=== PATIENT | male | born 1975 | race Caucasian/White ===

== ENCOUNTER 2016-12-02 22:12 | Emergency (ER) | payer OTHER ==
[~2016-12-02] VITALS: Ht 172.7 cm; Wt 86.2 kg
--- NOTE | 2016-12-02 22:45 | NUR ---
Pt ambulated to room, changed into gown and placed on monitor. Pt NSR. Pt c/o upper left chest pain close to the left shoulder since yesterday, worse today. Pt also c/o numbness /"burning" sensation to his hands and feet with a feeling of weakness to his hands. EKG obtained. Pt resting in position of comfort for self with family at bedside, awaiting further eval.
--- NOTE | 2016-12-02 22:57 | NUR ---
Dr. Del Valle at bedside for MSE
--- NOTE | 2016-12-02 23:10 | NUR ---
Pt medicated for anxiety, will monitor for effects of medication.
--- NOTE | 2016-12-02 23:58 | NUR ---
Pt sts he feels better and only has a little bit of weak feeling to his hands. Pt stable for discharge per Dr. Del Valle. Pt given ACI. Pt verbalized understanding of dc instructions. Pt ambulated out of ER with steady gait and ride home.
[2016-12-03 01:07] VITALS: BP 113/66
== END 2016-12-03 00:01 | disposition home or self-care (01) ==
LOC: ER 22:15
DX: R06.4 Hyperventilation (principal); Z88.0 Allergy status to penicillin; G43.909 Migraine, unspecified, not intractable, without status migrainosus; F17.200 Nicotine dependence, unspecified, uncomplicated
CPT/HCPCS: 93005; A4663

== ENCOUNTER 2017-04-02 12:46 | Emergency (ER) | payer OTHER ==
[~2017-04-02] VITALS: Ht 172.7 cm; Wt 81.6 kg
--- NOTE | 2017-04-02 13:23 | NUR ---
Patient discharged to home in stable conditon. Written and verbal after care instructions given. Patient verbalizes understanding of instructions.PT WALKS IN STEADY GAIT.
== END 2017-04-02 13:26 | disposition home or self-care (01) ==
LOC: ER 12:46
DX: L02.211 Cutaneous abscess of abdominal wall (principal); F17.200 Nicotine dependence, unspecified, uncomplicated; G43.909 Migraine, unspecified, not intractable, without status migrainosus; L08.9 Local infection of the skin and subcutaneous tissue, unspecified; B95.8 Unspecified staphylococcus as the cause of diseases classified elsewhere; Z88.0 Allergy status to penicillin; Z88.5 Allergy status to narcotic agent
CPT/HCPCS: A4663

== ENCOUNTER 2017-07-03 21:09 | Emergency (ER) | payer OTHER ==
[~2017-07-03] VITALS: Ht 170.2 cm; Wt 81.6 kg
--- NOTE | 2017-07-03 21:35 | NUR ---
PT IN BED. PT A&OX4. BREATH SOUNDS EVEN AND UNLABORED. NO SIGNS/SYMPTOMS OF DISTRESS WITNESS BY NURSE OR EXPRESSED BY PT. PT PRESENTED TO ED WITH C/O PAIN, SWELLING, AND REDNESS IN RT ELBOW X 1 DAY. PT REPORTS HISTORY OF IV DRUG USE.
--- NOTE | 2017-07-03 21:58 | NUR ---
PT IN BED. MD ROSE AT BEDSIDE CONDUCTING MED EVAL.
--- NOTE | 2017-07-03 22:09 | NUR ---
Patient discharged to home in stable conditon. Written and verbal after care instructions given. Patient verbalizes understanding of instructions. Patient able to ambulate unassisted with steady gait. Patient left with all personal belongings.
[2017-07-03 22:13] VITALS: BP 137/93
== END 2017-07-03 22:10 | disposition home or self-care (01) ==
LOC: ER 21:14
DX: B95.8 Unspecified staphylococcus as the cause of diseases classified elsewhere (principal); F17.210 Nicotine dependence, cigarettes, uncomplicated; Z88.0 Allergy status to penicillin; Z88.5 Allergy status to narcotic agent
CPT/HCPCS: A4663

== ENCOUNTER 2020-09-07 10:19 | Emergency (ER) | payer OTHER ==
[~2020-09-07] VITALS: Ht 172.7 cm; Wt 86.2 kg
--- NOTE | 2020-09-07 10:26 | NUR ---
Dr Del Valle at the bedside for MSE.
[2020-09-07 10:28] VITALS: BP 127/73
--- NOTE | 2020-09-07 10:40 | NUR ---
Patient discharged to home in stable condition. Written and verbal after care instructions given. Patient verbalizes understanding of instructions. Stressed follow up or return to ER for worsening s/s.
== END 2020-09-07 10:40 | disposition home or self-care (01) ==
LOC: ER 10:19
DX: L08.89 Other specified local infections of the skin and subcutaneous tissue (principal); B95.62 Methicillin resistant Staphylococcus aureus infection as the cause of diseases classified elsewhere; B37.2 Candidiasis of skin and nail; Z80.3 Family history of malignant neoplasm of breast; Z80.42 Family history of malignant neoplasm of prostate; Z80.51 Family history of malignant neoplasm of kidney; Z88.5 Allergy status to narcotic agent; Z88.0 Allergy status to penicillin; F17.200 Nicotine dependence, unspecified, uncomplicated
CPT/HCPCS: A4663

== ENCOUNTER 2020-10-11 01:50 | Emergency (ER) | payer OTHER ==
[~2020-10-11] VITALS: Ht 172.7 cm; Wt 90.7 kg
--- NOTE | 2020-10-11 02:22 | NUR ---
Pt here for L finger swelling and pain starting 2 days [employer].
[2020-10-11] MEDS ORDERED: SULF1TAB48 PO ×2 (02:51→03:16)
[2020-10-11] MEDS ORDERED: NEOMY/BACITRA/POLYMYXIN B OINT UD PACKET TP ONE ×2 (02:58→03:00)
[2020-10-11] MEDS ORDERED: SULFAMETH/TRIMETH 800/160 MG TABLET PO ONE (03:15)
[2020-10-11] MEDS ORDERED: SULFAMETH/TRIMETH 800/160 MG TABLET ONE (03:21)
--- NOTE | 2020-10-11 03:25 | NUR ---
Patient discharged to home in stable condition. Written and verbal after care instructions given. Patient verbalizes understanding of instructions. Stressed follow up or return to ER for worsening s/s. All belongings taken.
[2020-10-11 03:26] VITALS: BP 139/95
== END 2020-10-11 03:26 | disposition home or self-care (01) ==
LOC: ER 01:53
DX: L03.012 Cellulitis of left finger (principal); Z88.5 Allergy status to narcotic agent; Z88.0 Allergy status to penicillin; Z80.3 Family history of malignant neoplasm of breast; Z80.51 Family history of malignant neoplasm of kidney; Z80.42 Family history of malignant neoplasm of prostate
CPT/HCPCS: 73140; A4217; A4663

== ENCOUNTER 2021-01-30 03:48 | Emergency (ER) | payer OTHER ==
[~2021-01-30] VITALS: Ht 170.2 cm; Wt 90.7 kg
[~2021-01-30 03:48] MED LIST: SULF1TAB48 PO
--- NOTE | 2021-01-30 04:28 | NUR ---
Dr. Penny at bedside for MSE.
[2021-01-30] MEDS ORDERED: SULF1TAB48 PO (04:58)
[2021-01-30 05:04] VITALS: BP 116/86
--- NOTE | 2021-01-30 05:04 | NUR ---
Patient discharged to home in stable condition. Written and verbal after care instructions given. Patient verbalizes understanding of instructions. Stressed follow up or return to ER for worsening s/s. Patient out of ER with steady gait, no acute signs of distress, VSS, all belongings taken,
== END 2021-01-30 05:05 | disposition home or self-care (01) ==
LOC: ER 03:52
DX: L02.415 Cutaneous abscess of right lower limb (principal); L03.115 Cellulitis of right lower limb; Z88.6 Allergy status to analgesic agent; Z88.0 Allergy status to penicillin; Z80.3 Family history of malignant neoplasm of breast; Z80.51 Family history of malignant neoplasm of kidney; Z80.42 Family history of malignant neoplasm of prostate; F17.210 Nicotine dependence, cigarettes, uncomplicated
CPT/HCPCS: 10060; 99283; 99406; J3490; A4663